=== PATIENT | male | born 1980 | race Caucasian/White ===

== ENCOUNTER 2016-06-06 19:07 | Emergency (ER) | payer SELFPAY ==
[~2016-06-06] VITALS: Ht 193 cm; Wt 125.5 kg
[~2016-06-06 19:07] MED LIST: ALEVE220 MG PO; FLEXERIL10 MG PO; HYDROCODON-ACE1 EAC7 PO; IBUPROFEN200 M1 PO; MOTRIN600 MG PO; MOTRIN800 MG PO; NEXIUM20 MG PO; TRAMADOL HCL50 MG PO; ULTRAM50 MG PO; ZANTAC150 MG PO
[2016-06-06] MEDS ORDERED: KEFLEX500 MG PO (22:07)
[2016-06-06] MEDS ORDERED: BACTRIM,SEPT1 TABLET PO (22:07)
[2016-06-06 22:22] LABS: POINT-OF-CARE METER ID UU13113800
[2016-06-06 22:33] VITALS: BP 125/75
== END 2016-06-06 22:36 | disposition home or self-care (01) ==
LOC: RME 19:07 → EME 19:07 → RME 22:36
PROVIDERS: Nurse Practitioner Family
DX: L03.116 Cellulitis of left lower limb (principal); S50.861A Insect bite (nonvenomous) of right forearm, initial encounter; W57.XXXA Bitten or stung by nonvenomous insect and other nonvenomous arthropods, initial encounter; R00.0 Tachycardia, unspecified; Z83.3 Family history of diabetes mellitus; F17.200 Nicotine dependence, unspecified, uncomplicated
CPT/HCPCS: 82948; 99281; 99284

== ENCOUNTER 2017-03-09 12:27 | Emergency (ER) | payer SELFPAY ==
[~2017-03-09] VITALS: Ht 193 cm; Wt 134.4 kg
[~2017-03-09 12:27] MED LIST changes: +BACTRIM,SEPT1 TABLET PO; +KEFLEX500 MG PO
[2017-03-09 13:26] LABS: HEMATOCRIT 42.4 % (38.0-50.0); HEMOGLOBIN 13.7 G/DL (12.5-16.6); MCH 32.5 PG (29.0-34.0); MCHC 32.3 G/DL (30.0-36.0); MCV 100.5 FL (86-99); PLATELET COUNT 165 K/uL (156-360); RBC DIS.WIDTH-SD 48.5 % (39-53); RED BLOOD COUNT 4.22 M/uL (4.00-5.50); WHITE BLOOD COUNT 2.7 K/uL (4.1-10.2)
[2017-03-09 13:35] LABS: CHLORIDE 104 mEq/L (99-109); POTASSIUM 3.9 mEq/L (3.7-5.4); SODIUM 138 mEq/L (136-147)
[2017-03-09 13:37] LABS: GLUCOSE 136 mg/dL (70-99)
[2017-03-09 13:41] LABS: CREATININE 1.1 mg/dL (0.6-1.3); GFR ESTIMATE (CALCULATED) > 59 mL/min/ (58.99-99999)
[2017-03-09 13:42] LABS: UREA NITROGEN (BUN) 12 mg/dL (9-23)
[2017-03-09] MEDS ORDERED: PHENERGAN-CODE120 ML PO (15:57)
[2017-03-09] MEDS ORDERED: NAPROSYN500 MG PO (15:57)
[2017-03-09 16:13] VITALS: BP 134/76
== END 2017-03-09 16:14 | disposition home or self-care (01) ==
LOC: EME 12:27
DX: B34.9 Viral infection, unspecified (principal); F17.200 Nicotine dependence, unspecified, uncomplicated
CPT/HCPCS: 71020; 80048; 85027; 99281; 99284

== ENCOUNTER 2017-10-31 10:13 | Emergency (ER) | payer SELFPAY ==
[~2017-10-31] VITALS: Ht 193 cm; Wt 124.1 kg
[~2017-10-31 10:13] MED LIST changes: +NAPROSYN500 MG PO; +PHENERGAN-CODE120 ML PO
[2017-10-31] MEDS ORDERED: MOTRIN800 MG PO (11:29)
[2017-10-31] MEDS ORDERED: PEN-VEE K,VEET500 MG PO (11:29)
[2017-10-31 11:43] VITALS: BP 136/87
== END 2017-10-31 11:46 | disposition home or self-care (01) ==
LOC: EME 10:13
DX: K02.9 Dental caries, unspecified (principal); K04.7 Periapical abscess without sinus; F17.200 Nicotine dependence, unspecified, uncomplicated
CPT/HCPCS: 99281; 99283